=== PATIENT | male | born 1955 | race Caucasian/White ===

== ENCOUNTER 2020-02-14 08:00 | Outpatient (REF) | payer OTHER, SELFPAY ==
--- NOTE | 2020-02-14 | US_ITS ---
EXAMINATION: US ABDOMEN COMPLETE CLINICAL INFORMATION: Cirrhosis of liver. History of hepatitis C. COMPARISON: Ultrasound abdomen complete 11/09/2018 and 08/18/2017. MRI abdomen 03/02/2014. TECHNIQUE: Real-time imaging of the abdominal viscera. FINDINGS: PANCREAS: Normal. ABDOMINAL AORTA: The proximal, mid, and distal segments are normal in caliber. INFERIOR VENA CAVA: Visualized portions are normal. LIVER: The liver is normal size, lobulated shape with coarse echogenic parenchyma. No focal hepatic lesion. There is no intrahepatic biliary duct dilatation seen. GALLBLADDER: Normal. The gallbladder is physiologically distended without evidence of stones, sludge, polyps, wall thickening or pericholecystic fluid. COMMON BILE DUCT: Normal in caliber measuring 0.5 cm in diameter. RIGHT KIDNEY: Normal. No hydronephrosis. No renal calculi or focal parenchymal lesions. The kidney measures 10.1 cm in maximum dimension. LEFT KIDNEY: Normal. No hydronephrosis. No renal calculi or focal parenchymal lesions. The kidney measures 10.2 cm in maximum dimension. SPLEEN: Normal. The spleen measures 11.7 cm in maximum dimension. FREE FLUID: None. US/US abdomen complete IMPRESSION: Coarse lobulated cirrhotic appearing liver with no focal lesion seen. Rest of the abdominal ultrasound is unremarkable.
== END 2020-02-14 08:01 | disposition home or self-care (01) ==
LOC: HO.US 08:00
PROVIDERS: Visit Provider Internal Medicine
DX: K74.69 Other cirrhosis of liver (principal); Z86.19 Personal history of other infectious and parasitic diseases
CPT/HCPCS: 76700

== ENCOUNTER 2020-02-21 11:08 | Day surgery (SDC) | payer OTHER, SELFPAY ==
[2020-02-08 20:07] VITALS: BMI 29.8
--- NOTE | 2020-02-14 14:31 | HO.ANESPROP2 ---
Documented by User: Ynaeth Peters 02/14/20 14:33 HPI - Anesthesia Eval Consult details Narrative: 64yo M for Colonoscopy PMFSH Past Medical History Medical History (Updated 02/14/20 @ 14:32 by Yaneth Peters) Anxiety Asthma Back pain Chronic liver disease Cirrhosis Depression Diabetes GERD (gastroesophageal reflux disease) Hepatitis C Hiatal hernia Hypertension Status post open reduction and internal fixation (ORIF) of fracture Social History Social History (Updated 02/08/20 @ 20:06 by Suze Caldwell RN) Smoking Status: Current every day smoker Tobacco Type: Cigarette Packs Per Day: 0.5 Cigarettes Per Day: 10.0 Smoked in Last 30 Days: Yes Patient Given Instructions on How to Stop Smoking: Yes Date Education Initiated: 02/08/20 Second Hand Smoke Exposure: No Use of substances other than those prescribed or required for medical reasons: No Other Past Substance Use Problem:: PMH COCAINE USE Advance Directives: No Advance Directives Information Provided: No Advance Directives on File: No Recently lost weight without trying: No Meds Allergies Allergy/AdvReac Type Severity Reaction Status Date / Time No Known Allergies Allergy Verified 02/21/20 11:43 Home Medications Medication Instructions Recorded Confirmed Type albuterol sulfate 2 puff INHALATION Q6H PRN 02/08/20 02/08/20 History amlodipine 1 tab PO DAILY 02/08/20 02/08/20 History clonazepam 1 tab PO BID PRN 02/08/20 02/08/20 History cyclobenzaprine 1 tab PO NEEDED 02/08/20 02/08/20 History hydroxyzine pamoate 1 - 2 cap PO BEDTIME PRN 02/08/20 02/08/20 History lisinopril-hydrochlorothiazide 1 tab PO DAILY 02/08/20 02/08/20 History omeprazole 1 cap PO DAILY 02/08/20 02/08/20 History methadone 02/21/20 History Exam Exam Date and Time: February 14, 2020 1431 Height,Weight and Vital Signs: Height 6 ft Weight 99.79 kg Assessment and Plan Assessment Anesthesia Assessment: Chart Reviewed Documented by User: Maurisio Brent 02/21/20 12:05 [facility] Past Medical History Medical History (Updated 02/14/20 @ 14:32 by Yaneth Peters) Anxiety Asthma Back pain Chronic liver disease Cirrhosis Depression Diabetes GERD (gastroesophageal reflux disease) Hepatitis C Hiatal hernia Hypertension Status post open reduction and internal fixation (ORIF) of fracture Social History Social History (Updated 02/08/20 @ 20:06 by Suze Caldwell RN) Smoking Status: Current every day smoker Tobacco Type: Cigarette Packs Per Day: 0.5 Cigarettes Per Day: 10.0 Smoked in Last 30 Days: Yes Patient Given Instructions on How to Stop Smoking: Yes Date Education Initiated: 02/08/20 Second Hand Smoke Exposure: No Use of substances other than those prescribed or required for medical reasons: No Other Past Substance Use Problem:: PMH COCAINE USE Advance Directives: No Advance Directives Information Provided: No Advance Directives on File: No Recently lost weight without trying: No Meds Allergies Allergy/AdvReac Type Severity Reaction Status Date / Time No Known Allergies Allergy Verified 02/21/20 11:43 Home Medications Medication Instructions Recorded Confirmed Type albuterol sulfate 2 puff INHALATION Q6H PRN 02/08/20 02/08/20 History amlodipine 1 tab PO DAILY 02/08/20 02/08/20 History clonazepam 1 tab PO BID PRN 02/08/20 02/08/20 History cyclobenzaprine 1 tab PO NEEDED 02/08/20 02/08/20 History hydroxyzine pamoate 1 - 2 cap PO BEDTIME PRN 02/08/20 02/08/20 History lisinopril-hydrochlorothiazide 1 tab PO DAILY 02/08/20 02/08/20 History omeprazole 1 cap PO DAILY 02/08/20 02/08/20 History methadone 02/21/20 History Exam Airway Mallampati Class: II TM Dist: >3cm Neck ROM: Full Denture: Upper and Lower Heart: [id number] Lungs: cta b/l Assessment and Plan Assessment Anesthesia Assessment: Anesthesia Plan Discussed and Chart Reviewed Final Anesthetic Review NPO: Yes ASA Class: II Final Preanesthetic Review: No Changes in Pt Med Stat, Meds/Allgs Chart Reviewed, Consent Obtained/Reviewed and Anes Risks/Benef Reviewed Patient Risk: Intermediate Procedure Risk: Low Assessment/Block/Sedation in SS: Assess/Block/Sedation-SS Anesthetic Plan Anesthetic Plan: MAC: Disposition: Standard PACU
[2020-02-21 11:45] LABS: Glucose, Whole Blood 162 mg/dL (60-115)
[2020-02-21 11:49] VITALS: BP 113/73; PULSE 59; RESP 18; TEMP 36.6; O2SAT 94
[2020-02-21] MEDS: Lactated Ringers 1,000 ML 100 ML IVCONT (11:57)
[2020-02-21 13:24] VITALS: BP 110/70; PULSE 52; RESP 16; TEMP 36.2; O2SAT 98
--- NOTE | 2020-02-21 13:26 | PM.OP ---
Brief Operative Note Date of Service: 02/21/20 Pre-op diagnosis: Screening, History of polyps Post-op diagnosis: other (Diverticulosis, Internal hemorrhoids) Procedure: Colonoscopy to the cecum Surgeon: Sourav Nino Anesthesia: MAC Estimated blood loss (mL): 0 Pathology: none sent Condition: stable Disposition: PACU
[2020-02-21 13:39] VITALS: BP 110/74; PULSE 61; RESP 17; TEMP 36.5; O2SAT 97
--- NOTE | 2020-02-21 14:06 | HO.POSTANES ---
Post Anesthesia Evaluation Post Anesthesia Evaluation Vital Signs: Vital Signs Temp Pulse Resp BP Pulse Ox 02/21/20 13:39 97.7 F 61 17 110/74 97 02/21/20 13:24 97.2 F 52 16 110/70 98 02/21/20 11:49 97.8 F 59 18 113/73 94 Anesthesia: General (TIVA) Mental Status: Awake Pain Control: Satisfactory Nausea/Vomiting: None Hydration: Adequate Anesthesia-Related Issues: No Anes. Related Issues
--- NOTE | 2020-02-21 14:34 | OP_ITS ---
SURGEON: Sourav Nino MD INDICATIONS: The patient presents for followup of personal history of colon polyps. Full consent has been obtained from him for this, including risks of bleeding and perforation. PREOPERATIVE DIAGNOSIS: Personal history of colon polyps. POSTOPERATIVE DIAGNOSIS: PROCEDURE PERFORMED: Colonoscopy to cecum. ESTIMATED BLOOD LOSS: COMPLICATIONS: ANESTHESIA: Monitored anesthesia care. ASSISTANTS: SPECIMENS: POSTOPERATIVE DIAGNOSES: Personal history of colon polyps, sigmoid diverticulosis, and internal hemorrhoids. DESCRIPTION OF PROCEDURE: The patient was placed in the left lateral decubitus position. The digital rectal exam revealed no abnormalities. The Olympus video pediatric colonoscope was entered into the rectum and advanced to the cecum with the assistance of abdominal wall pressure. Once in the cecum, I did identify normal-appearing cecal pouch with appendiceal orifice and a normal-appearing ileocecal valve. The entire cecum appeared normal. The scope was then slowly withdrawn assessing all mucosal surfaces carefully. Preparation was good throughout the colon, although there were some areas of some liquid stool, which were irrigated and suctioned away as best as possible. I did not visualize any sign of polyps, colitis, or angiodysplasia. There was a mild amount of sigmoid diverticulosis. In the rectum, scope was retroflexed visualizing internal hemorrhoids, but no other pathology. The rectal mucosa appeared normal. The scope was straightened and withdrawn from the patient. He tolerated the procedure well and was returned to recovery area in stable condition. IMPRESSION: 1. Sigmoid diverticulosis. 2. Internal hemorrhoids. PLAN: Given the patient's previous history, I would recommend a followup colonoscopy in 5 years for further screening and surveillance. He was advised to see me in 1 year for followup in regard to the underlying liver disease. This has been discussed with his sister, Ela. MD BJ Meza/TOMMY / [phone]
== END 2020-02-21 14:07 | disposition home or self-care (01) ==
PROVIDERS: PCP Internal Medicine; Visit Provider Internal Medicine
PROC: 0DJD8ZZ Inspection of Lower Intestinal Tract, Via Natural or Artificial Opening Endoscopic (ICD-10-PCS; CPT 45378; principal; 2020-02-21 12:30)
DX: Z12.11 Encounter for screening for malignant neoplasm of colon (principal); Z86.010 Personal history of colon polyps; K57.30 Diverticulosis of large intestine without perforation or abscess without bleeding; K64.8 Other hemorrhoids; K21.9 Gastro-esophageal reflux disease without esophagitis; K74.69 Other cirrhosis of liver; I10 Essential (primary) hypertension; E11.9 Type 2 diabetes mellitus without complications; J45.909 Unspecified asthma, uncomplicated; Z79.51 Long term (current) use of inhaled steroids; Z79.899 Other long term (current) drug therapy; F11.90 Opioid use, unspecified, uncomplicated; F17.210 Nicotine dependence, cigarettes, uncomplicated; Z86.19 Personal history of other infectious and parasitic diseases
CPT/HCPCS: 45378; 82947

== ENCOUNTER 2021-09-04 07:22 | Outpatient (REF) | payer OTHER, SELFPAY ==
--- NOTE | ~2021-09-04 | US_ITS ---
EXAMINATION: US ABDOMEN COMPLETE CLINICAL INFORMATION: Cirrhosis. COMPARISON: Ultrasound abdomen complete 02/14/2020 and 11/09/2018. MRI abdomen 03/02/2014. TECHNIQUE: Real-imaging of the abdominal viscera. FINDINGS: PANCREAS: Visualized portions of the pancreas are unremarkable. The pancreatic tail is obscured by bowel gas. ABDOMINAL AORTA: The proximal, mid, and distal segments are normal in caliber. INFERIOR VENA CAVA: Visualized portions are normal. LIVER: The liver is normal in size. Coarse hepatic echotexture which could be seen in the setting of underlying liver disease. No focal hepatic lesion. There is no intrahepatic biliary duct dilatation seen. GALLBLADDER: Normal. The gallbladder is physiologically distended without evidence of stones, sludge, polyps, wall thickening or pericholecystic fluid. COMMON BILE DUCT: Normal in caliber measuring 0.4 cm in diameter. RIGHT KIDNEY: Technically limited views. No hydronephrosis. No renal calculi or focal parenchymal lesions. The kidney measures 9.5 cm in maximum dimension. LEFT KIDNEY: Technically limited views. No hydronephrosis. No renal calculi or focal parenchymal lesions. The kidney measures 9.4 cm in maximum dimension. SPLEEN: Normal. The spleen measures 10.1 cm in maximum dimension. FREE FLUID: None. US/US abdomen complete IMPRESSION: Coarse hepatic echotexture which could be seen in the setting of underlying liver disease. No discrete liver lesion. Technically limited exam and portions of the kidneys and the pancreas were obscured by bowel gas.
== END 2021-09-04 07:23 | disposition home or self-care (01) ==
LOC: HO.US 07:22
PROVIDERS: Visit Provider Internal Medicine
DX: K74.69 Other cirrhosis of liver (principal)
CPT/HCPCS: 76700

== ENCOUNTER 2022-02-13 13:52 | Outpatient (REF) | payer OTHER, SELFPAY ==
--- NOTE | 2022-02-13 15:11 | MHC.AU.HA1 ---
Hearing Aid Evaluation Date of Visit: 02/13/22 Historical Information: Description of Hearing: Within normal through 1500 Hz steeply sloping to profound sensorineural hearing loss, bilaterally Summary: Candie reported that he noticed hearing difficulties about three years ago. He often loses concentration on a conversation because he cannot understand what is being said. He is ready to pursue hearing aids to help with his daily interactions. Candie reportedly lives a quiet lifestyle. However, he attends judaism every week as well as frequents restaurants, appointments, and stores. Candie initially wanted custom in-the-ear hearing aids as he is concerned about other people's perception; however, after discussing the pros and cons of each style, Candie was agreeable to a [id number]-ear hearing aid with a dome. Hearing Aid Prescription: Based on the individual?s shared listening needs, communication environments, dexterity, desire for connectivity, and personal preferences, the following prescription for amplification has been made: Right ear: Make, Model, Color: Phonak Audeo L70-R Color: Silver Peng Battery Size: Rechargeable Quilt Sewer/Slim Tube: 1M Type of Earmold/Dome/CShell/SlimTip: Medium open dome Left ear: Left ear prescription to be same as Right Hearing Aid above: Make, Model, Color: Phonak Audeo L70-R Color: Silver Peng Battery Size: Rechargeable Quilt Sewer/Slim Tube: 1M Type of Earmold/Dome/CShell/SlimTip: Medium open dome Plan of Care: Patient wishes to purchase hearing aids as prescribed Action Taken/Action Needed: Hearing Instrument Fitting to be scheduled when materials arrive Primary Diagnosis: H90.3 Bilateral Sensorineural Hearing Loss Signature: Provider: Alexa Dominguez, [facility]
== END 2022-02-13 13:53 | disposition home or self-care (01) ==
LOC: HO.HAP 13:52
PROVIDERS: Visit Provider Otolaryngology
DX: Z46.1 Encounter for fitting and adjustment of hearing aid (principal); H90.3 Sensorineural hearing loss, bilateral
CPT/HCPCS: 92591

== ENCOUNTER 2022-02-27 13:47 | Outpatient (REF) | payer OTHER, SELFPAY ==
--- NOTE | 2022-02-27 15:02 | MHC.AU.HA2 ---
Hearing Instrument Fitting- Adult- Binaural Date of Visit: 02/27/22 Hearing Instruments Dispensed: Right Ear: Make, Model, Color, Serial Number: Vivi Gaitan L70-R SN: [id number] Color: Silver Peng Internet Marketing Director Repair Warranty: 05/14/2025 Internet Marketing Director Loss and Damage Warranty: 05/14/2025 [facility] Service Plan: 02/27/2023 Battery Size: Rechargeable Equipment Mechanic Specialist/Slim Tube: 1M 4.0 Earmold/Dome/CShell/SlimTip: Medium open dome Type of Wax Guard: CeruShield Left Ear: Make, Model, Color, Serial Number: Vivi Platto L70-R SN: [id number] Color: Silver Peng Internet Marketing Director Repair Warranty: 05/14/2025 Internet Marketing Director Loss and Damage Warranty: 05/14/2025 [facility] Service Plan: 02/27/2023 Battery Size: Rechargeable Equipment Mechanic Specialist/Slim Tube: 1M 4.0 Earmold/Dome/CShell/SlimTip: Medium open dome Type of Wax Guard: CeruShield Accessories/Assistive Technology: Phonak EPS SN [id number] Summary of Fitting: Candie was accompanied by his caregiver, Lucas Gandhi. Performed feedback manager laundry and real ear measurements. Appropriate match to target through 2000 Hz. SoundRecover on for better audibility of high frequency sounds. Comfortable at real-ear settings. Discussed care, use, and rechargeability including manually turning on/off, volume control use, changing domes and wax guards and insertion/removal. Some difficulty fully inserting but better with practice. Paired to cellphone and confirmed successful connection in office. Explained importance of consistent use and acclimatization period. Recommendations: A hearing instrument follow-up was scheduled. Please call our clinic with any questions or concerns. Diagnosis Code(s): Primary Diagnosis: H90.3 Bilateral Sensorineural Hearing Loss Signature: Provider: Alexa Dominguez, [facility]
== END 2022-02-27 13:48 | disposition home or self-care (01) ==
LOC: HO.HAP 13:47
PROVIDERS: Visit Provider Internal Medicine
DX: Z46.1 Encounter for fitting and adjustment of hearing aid (principal); H90.3 Sensorineural hearing loss, bilateral
CPT/HCPCS: V5011; V5020; V5160; V5261

== ENCOUNTER 2022-03-20 13:40 | Outpatient (REF) | payer OTHER, SELFPAY ==
--- NOTE | 2022-03-20 15:23 | MHC.AU.HA3 ---
Hearing Instrument Follow-Up- Binaural Date of Visit: 03/20/22 Right Ear: Sharad, , Color, Serial Number: Vivi Gaitan L70-R SN: [id number] Color: Silver Peng Imaging Science Professor Repair Warranty: 05/14/2025 Imaging Science Professor Loss and Damage Warranty: 05/14/2025 [facility] Service Plan: 02/27/2023 Battery Size: Rechargeable Lead Performance Support Analyst/Slim Tube: 1M 4.0 Earmold/Dome/CShell/SlimTip:Medium open dome Type of Wax Guard: CeruShield Dispensed By: [facility] Date of Fittin02/27/2022 Left Ear: Sharad, , Color, Serial Number: Vivi Gaitan L70-R SN: [id number] Color: Silver Peng Imaging Science Professor Repair Warranty: 05/14/2025 Imaging Science Professor Loss and Damage Warranty: 05/14/2025 [facility] Service Plan: 02/27/2023 Battery Size: Rechargeable Lead Performance Support Analyst/Slim Tube: 1M 4.0 Earmold/Dome/CShell/SlimTip: Medium open dome Type of Wax Guard: CeruShield Dispensed By: [facility] Date of Fittin02/27/2022 Follow-Up Summary: Candie reported that overall he is doing well with the hearing aids. He is hearing sounds that he has not heard in years including the crinkling of a chip bag and the clank of closing his glasses. He thought the hearing aids were slightly too loud. Decreased to 90% gain level with auto-increase to target in 30 days. Candie also reported a loud, beeping sound that he initially heard a couple of times per day during the first four days wearing the hearing aids - possibly some environmental sound that he could not identify at the time. He will monitor and schedule an appointment if the problem persists. Data logging showed about 4 hours of use per day. Discussed the importance of full-time consistent use in fully acclimating to the hearing aids. Recommendations: Hearing instrument maintenance in 6 months, or sooner if needed. Please contact our clinic with any questions or concerns. Diagnosis Code(s): Primary Diagnosis: H90.3 Bilateral Sensorineural Hearing Loss Signature: Provider: Alexa Dominguez, [facility]
== END 2022-03-20 13:41 | disposition home or self-care (01) ==
LOC: HO.HAP 13:40
PROVIDERS: Visit Provider Internal Medicine
DX: Z13.89 Encounter for screening for other disorder (principal)

== ENCOUNTER → 2022-05-31 08:02 | Outpatient (BNVA) | payer OTHER, SELFPAY | PROVIDERS: PCP Internal Medicine; Visit Provider Psychiatry & Neurology Neurology | DX: R41.89 Other symptoms and signs involving cognitive functions and awareness (principal); G47.10 Hypersomnia, unspecified; R06.81 Apnea, not elsewhere classified; R06.83 Snoring | CPT/HCPCS: 99202 ==

== ENCOUNTER → 2022-06-13 13:58 | Outpatient (REF) | payer OTHER, SELFPAY | LOC: HO.SL 13:58 | PROVIDERS: PCP Internal Medicine; Visit Provider Psychiatry & Neurology Neurology | DX: G47.10 Hypersomnia, unspecified (principal); R06.81 Apnea, not elsewhere classified; R06.83 Snoring; G47.33 Obstructive sleep apnea (adult) (pediatric) | CPT/HCPCS: 95806 ==

== ENCOUNTER 2022-07-01 13:34 | Outpatient (REF) | payer OTHER, SELFPAY ==
--- NOTE | ~2022-07-01 | MR_ITS ---
EXAMINATION: MR BRAIN WITHOUT CONTRAST CLINICAL INFORMATION: Symptoms of altered cognitive function and awareness. Loss of memory. Headaches. COMPARISON: None available. TECHNIQUE: MRI of the brain was obtained using routine sequences without contrast. FINDINGS: No focal restricted diffusion is demonstrated to suggest acute or subacute cerebral ischemia. There is a region of chronic encephalomalacia with hemosiderin staining within the left casas radiata and anterior limb of the left internal capsule. No evidence of acute hemorrhagic products on heme-sensitive imaging. Scattered and partially confluent periventricular, deep white matter, and brainstem T2 FLAIR hyperintensities consistent with moderate underlying microangiopathy. Proportional prominence of the ventricles and sulcal spaces without evidence of obstructive hydrocephalus. No abnormal mass effect. No midline shift. Normal appearance of the pituitary gland. Normal positioning of the cerebellar tonsils. Normal arterial and venous vascular flow voids are present. Normal, homogeneous marrow signal. Moderate mucosal thickening of the paranasal sinuses. Moderate left-sided mastoid effusion. No signal abnormalities within the right-sided mastoid. MR/MR head/brain wo con IMPRESSION: 1. No acute intracranial abnormalities. 2. 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 Moderate underlying microangiopathy and generalized cerebral volume loss.
== END 2022-07-01 13:35 | disposition home or self-care (01) ==
LOC: HO.MRI 13:34
PROVIDERS: PCP Internal Medicine; Visit Provider Psychiatry & Neurology Neurology
DX: R41.89 Other symptoms and signs involving cognitive functions and awareness (principal)
CPT/HCPCS: 70551

== ENCOUNTER → 2022-08-01 10:54 | Outpatient (BNVA) | payer OTHER, SELFPAY | PROVIDERS: PCP Internal Medicine; Visit Provider Nurse Practitioner Family | DX: R41.89 Other symptoms and signs involving cognitive functions and awareness (principal); G47.10 Hypersomnia, unspecified; R06.81 Apnea, not elsewhere classified; R06.83 Snoring | CPT/HCPCS: 99212 ==

== ENCOUNTER 2022-08-19 12:57 | Outpatient (REF) | payer OTHER, SELFPAY ==
--- NOTE | 2022-08-19 13:31 | MHC.AU.HA3 ---
Hearing Instrument Follow-Up- Binaural Date of Visit: 08/19/22 Right Ear: Sharad, , Color, Serial Number: Vivi Gaitan L70-R SN: [id number] Color: Silver Peng Fire Lieutenant Marine Repair Warranty: 05/14/2025 Fire Lieutenant Marine Loss and Damage Warranty: 05/14/2025 [facility] Service Plan: 02/27/2023 Battery Size: Rechargeable Management Supervisor/Slim Tube: 1M 4.0 Earmold/Dome/CShell/SlimTip:Medium open dome Type of Wax Guard: CeruShield Dispensed By: [facility] Date of Fittin02/27/2022 Left Ear: Sharad, , Color, Serial Number: Vivi Gaitan L70-R SN: [id number] Color: Silver Peng Fire Lieutenant Marine Repair Warranty: 05/14/2025 Fire Lieutenant Marine Loss and Damage Warranty: 05/14/2025 [facility] Service Plan: 02/27/2023 Battery Size: Rechargeable Management Supervisor/Slim Tube: 1M 4.0 Earmold/Dome/CShell/SlimTip: Medium open dome Type of Wax Guard: CeruShield Dispensed By: [facility] Date of Fittin02/27/2022 Follow-Up Summary: Candie reported that overall he is doing well with the hearing aids; however, he admitted that he needs to wear them more often. He currently only wears them to doctor's appointments and at mu-ism. Strongly encouraged more consistent use even at home. Cleaned both hearing aids. Replaced domes and wax guards. Candie reported a beeping noise every time he puts the hearing aids on (which he also reported on 03-20-22). Played the different notifications via [employer] software. Candie recognized the volume change beep and volume neutral beep as the same sounds he hears. Likely that Candie is accidently pressing the volume control button on the hearing aid while trying to insert them. Did not disable volume control button at this time as Candie reported he will be more aware of the button when inserting the hearing aids. Recommendations: Hearing instrument follow-up or maintenance as needed. Diagnosis Code(s): Primary Diagnosis: H90.3 Bilateral Sensorineural Hearing Loss Signature: Provider: Alexa Dominguez, [facility]
== END 2022-08-19 12:58 | disposition home or self-care (01) ==
LOC: HO.HAP 12:57
PROVIDERS: Visit Provider Internal Medicine
DX: Z13.89 Encounter for screening for other disorder (principal)

== ENCOUNTER → 2022-09-03 19:30 | Outpatient (REF) | payer OTHER, SELFPAY | LOC: HO.SL 19:30 | PROVIDERS: PCP Internal Medicine; Visit Provider Nurse Practitioner Family | DX: G47.33 Obstructive sleep apnea (adult) (pediatric) (principal) | CPT/HCPCS: 95811 ==

== ENCOUNTER → 2022-09-03 22:11 | Outpatient (BNV) | payer OTHER, SELFPAY | PROVIDERS: PCP Internal Medicine; Visit Provider Psychiatry & Neurology Neurology | DX: G47.33 Obstructive sleep apnea (adult) (pediatric) (principal) | CPT/HCPCS: 95811 ==

== ENCOUNTER 2022-09-05 10:05 | Outpatient (REF) | payer OTHER, SELFPAY ==
--- NOTE | ~2022-09-05 | US_ITS ---
EXAMINATION: US COMPLETE ABDOMEN WITH LIVER ELASTOGRAPHY CLINICAL INFORMATION: Cirrhosis COMPARISON: Previous exam most recent August 2021 TECHNIQUE: Real-time imaging of the abdominal viscera. Noninvasive ultrasound liver fibrosis assessment is performed using Juli ElastPQ point quantification shear wave elastography (2D-SWE) with a C5-2 MHz transducer. Multiple elastography samples are obtained. FINDINGS: PANCREAS: Not well visualized due to bowel gas overlying bowel gas. ABDOMINAL AORTA: The proximal, middle, and distal aortic segments are normal in caliber. INFERIOR VENA CAVA: Visualized portions are normal. LIVER: Liver echotexture is heterogeneous suggestive of hepatocellular disease. The untoward the liver is slightly irregular questionable for mild cirrhotic change.. No focal liver lesion. No biliary duct dilatation. The right lobe measures 15 cm in length. The left lobe measures 12 cm in length. Portal flow is normal/hepatopedal Shear wave liver elastography median stiffness is 1.3 m/s (reference: normal median stiffness is 1.3 m/s or less). IQR/median stiffness to assess sampling precision is 0.07 (reference: good quality data set is IQR/median stiffness of 0.15 or less). GALLBLADDER: Normal. The gallbladder is physiologically distended without evidence of stones, sludge, polyps, wall thickening or pericholecystic fluid. COMMON BILE DUCT: Normal in caliber measuring 0.6 cm in diameter. RIGHT KIDNEY: Normal. No hydronephrosis. No renal calculi or focal parenchymal lesions. The kidney measures 10 cm in maximum dimension. LEFT KIDNEY: Normal. No hydronephrosis. No renal calculi or focal parenchymal lesions. The kidney measures 10 cm in maximum dimension. SPLEEN: Normal. The spleen measures 11 cm in maximum dimension. FREE FLUID: None. US/US abdomen comp w elastography IMPRESSION: 1. Impression: Heterogeneous liver echotexture suggestive of hepatocellular disease and question mild cirrhotic changes. No focal liver lesion. Limited visualization of the pancreas. 2. Liver elastography: Adequate liver sampling . Normal liver stiffness. REFERENCE: Society of Radiologists in Ultrasound Liver Stiffness Thresholds (2020): LIVER STIFFNESS THRESHOLDS: *Liver Stiffness equal or less than 1.3 m/s: High probability of being normal. *Liver Stiffness less than 1.7 m/s: In the absence of other known clinical signs, rules out compensated advanced chronic liver disease. *Liver Stiffness 1.7-2.1 m/s: Suggestive of compensated advanced chronic liver disease but need further test for confirmation. *Liver Stiffness over 2.1 m/s: Rules in compensated advanced chronic liver disease. *Liver Stiffness over 2.4 m/s: Suggestive of clinically significant portal hypertension. QUALITY OF DATA SET: *IQR/Median value equal or less than 0.15 implies a quality data set. *IQR/Median value over 0.15 implies a poor quality data set. SIGNIFICANT CHANGE FROM PRIOR EXAM: Significant change if liver stiffness measurement is 10% or greater from prior exam. OTHER CONSIDERATIONS: The stage of liver fibrosis may be overestimated in the setting of acute hepatitis, liver inflammation, elevated liver function tests, hepatic vascular congestion, obstructive cholestasis, non-fasting state, and infiltrative diseases such as amyloidosis and lymphoma. In some patients with NAFLD, the liver stiffness thresholds for compensated advanced chronic liver disease may be lower. In causes other than viral hepatitis and NAFLD, liver stiffness thresholds are not well established.
== END 2022-09-05 10:06 | disposition home or self-care (01) ==
LOC: HO.US 10:05
PROVIDERS: PCP Internal Medicine; Visit Provider Internal Medicine
DX: K74.69 Other cirrhosis of liver (principal); Z86.19 Personal history of other infectious and parasitic diseases
CPT/HCPCS: 76705; 76981

== ENCOUNTER 2022-10-23 09:12 | Outpatient (AMB) | payer OTHER, SELFPAY ==
--- NOTE | 2022-10-23 09:13 | A.OFFVIS_ITS ---
Intake Vital Signs 10/23/22 09:19 Weight 220 lb BP 118/58 L Blood Pressure Location Lt brachial Position Sitting Pulse 75 Pulse Source Pulse Oximeter Pulse Oximetry (%) 95 Oxygen Delivery Method Room Air Intake Visit Reasons: 2m follow up Ongoing Memory problems-Confirmed Intake Note: F/U CRISTOPHER Validation Specialist Required: No Allergies No Known Allergies Allergy (Verified 10/23/22 09:14) HPI HPI Comments History of Present Illness Details 66 y/o male patient presents for follow up of sleep study. The CPAP titration study result was recommended CPAP at [id number]. Pt's breathing and oxygenation was stabilized on CPAP [id number]. The CPAP compliance and therapy response (09/24/22-10/22/22) reviewed. The CPAP usage days 34% and the averagy usage hours 4 hrs and 30 min. AHI was 25.5/hr, and the apnea index was central 4.2 and obstructive 17. Pt reports that he had a full face mask while he had titration study, and he felt good and slept well. However, he had nasal mask and it is leaking and not fit for him. He had sore around his nose and having difficulty using it. [facility] Medical History (Updated 08/02/22 @ 11:14 by Laura Thomas CNP) Hypersomnia Witnessed apneic spells Snoring Cognitive change Marijuana use, continuous Narcotic abuse in remission Hepatitis C Chronic liver disease Hiatal hernia Back pain Diabetes Cirrhosis GERD (gastroesophageal reflux disease) Anxiety Depression Asthma Hypertension Surgical History H/O lateral meniscus repair of right knee Status post open reduction and internal fixation (ORIF) of fracture Family History Mother HTN (hypertension) Social History (Updated 10/23/22 @ 09:19 by Bibiana Cisneros CMA) Alcohol intake: never Patient Tobacco Use Status: Current everyday Tobacco user Cigarette Packs Per Day: 0.5 Cigarettes Per Day: 10.0 Second Hand Smoke Exposure: No Substance Use Type: Marijuana Review of Systems Const All systems reviewed & are unremarkable except as noted in HPI and below Physical Exam Vital Signs: Last Vital Signs Pulse 75 10/23/22 09:19 BP 118/58 L 10/23/22 09:19 Pulse Ox 95 10/23/22 09:19 Oxygen Delivery Method Room Air 10/23/22 09:19 Const General: cooperative, healthy appearing and comfortable Nutritional Appearance: average body habitus Orientation/consciousness: patient oriented x3 Limitations: no limitations Eyes Pupils: Equal, round and reactive pupils present Neuro Other: dysarthria due to loss of teeth could not tandem General: patient oriented x3, tone normal, moves all extremities, Normal light touch and pain sensation and no focal motor deficits Cranial nerves: Yes Facial sensation intact/muscles of mastication intact, Yes Equal, round and reactive pupils present, Yes Bilaterally intact EOM present, Yes Nystagmus not present, Yes Normal facial strength present, Yes Midline tongue present and Yes Symmetric palate elevation present Cognition (Neuro): normal cognition Gait exam (Neuro): Normal gait present Motor exam (neuro): 5/5 motor strength present throughout and Normal motor muscle tone present throughout Deep tendon reflexes (DTR's): Right triceps reflex intensity grade: 1+, Left triceps reflex intensity grade: 1+, Rt Biceps (C5, C6): 1+, Left biceps reflex intensity grade: 1+, Right brachioradialis reflex intensity grade: 1+, Left brachioradialis reflex intensity grade: 1+, Right patellar reflex intensity grade: 1+ and Left patellar reflex intensity grade: 1+ Coordination: [id number] test normal Psych Appearance: grossly normal Mental Status: mental status grossly normal Speech and movement: Normal speech and movement present Assessment & Plan Assessment & Plan (1) Cognitive change: Comment: multifactorial, h/o heavy alcohol and drug use , vascular ? CRISTOPHER Code(s): R41.89 - Other symptoms and signs involving cognitive functions and awareness (2) Sleep apnea: Comment: Severe degree of sleep apnea. The AHI was 34/hr and oxygen diana was 76%. Code(s): G47.30 - Sleep apnea, unspecified Plan New mask fitting prescription and [facility] information given to patient to try full face mask, and sent it to the home care company. Encouraged to use hearing aids consistently , increase cognitive activity and decrease marijuana use. Coding Level of Care Code Est Pt Level 3 (32606) Diagnoses Cognitive change R41.89 Sleep apnea G47.30
[2022-10-23 09:19] VITALS: BP 118/58; PULSE 75; O2SAT 95
== END 2022-10-23 09:32 | disposition home or self-care (01) ==
PROVIDERS: PCP Internal Medicine; Visit Provider Nurse Practitioner Family
DX: R41.89 Other symptoms and signs involving cognitive functions and awareness (principal); G47.30 Sleep apnea, unspecified
CPT/HCPCS: 99213

== ENCOUNTER → 2022-10-23 09:12 | Outpatient (BNVA) | payer OTHER, SELFPAY | PROVIDERS: PCP Internal Medicine; Visit Provider Nurse Practitioner Family | DX: R41.89 Other symptoms and signs involving cognitive functions and awareness (principal); G47.30 Sleep apnea, unspecified | CPT/HCPCS: 99212 ==